=== PATIENT | female | born 1980 | race Caucasian/White ===

== ENCOUNTER 2017-12-13 23:06 | Emergency (ER) | payer MEDICAID ==
[~2017-12-13] VITALS: Ht 175.3 cm; Wt 65.8 kg
[2017-12-13] MEDS ORDERED: LORazepam 2 mg/ml vial IV ONE (23:45)
[2017-12-14] MEDS ORDERED: LORazepam 1 MG tablet PO ONE (00:05)
[2017-12-14 00:38] LABS: URINE HCG NEGATIVE (NEG)
[2017-12-14 00:40] LABS: HEMATOCRIT 40.1 % (35.0-45.0); HEMOGLOBIN 13.4 g/dl (12.0-16.0); MEAN CORPUSCULAR HEMOGLOBIN 30.8 PG (27.0-31.0); MEAN CORPUSCULAR HGB CONC 33.3 % (33.0-36.5); MEAN CORPUSCULAR VOLUME 92.5 FL (78-98); MEAN PLATELET VOLUME 8.3 FL (7.4-10.4); PLATELET COUNT 233 X10'3 (140-440); RED BLOOD COUNT 4.34 X10'6 (4.20-5.60); RED CELL DISTRIBUTION WIDTH 17.9 % (11.5-14.5); WHITE BLOOD COUNT 8.7 X10'3 (4.5-11.0)
[2017-12-14 00:48] LABS: URINE AMPHETAMINE SCREEN NEGATIVE (Neg); URINE BARBITUATE SCREEN NEGATIVE (Neg); URINE BENZODIAZEPINES SCREEN NEGATIVE (Neg); URINE CANNABINOID SCREEN NEGATIVE (Neg); URINE COCAINE SCREEN NEGATIVE (Neg); URINE METHADONE SCREEN NEGATIVE (Neg); URINE OPIATE SCREEN NEGATIVE (Neg); URINE PHENCYCLIDINE SCREEN NEGATIVE (Neg)
[2017-12-14 00:59] LABS: CLARITY,URINE CLEAR (Clear); COLOR,URINE YELLOW (Yellow); GLUCOSE, URINE NEGATIVE (Neg); KETONES,URINE NEGATIVE (Neg); LEUKOCYTE ESTERASE ,URINE NEGATIVE (Neg); NITRITES, URINE NEGATIVE (Neg); OCCULT BLOOD,URINE NEGATIVE (Neg); PROTEIN,URINE NEGATIVE (Neg); UROBILINOGEN,URINE 0.2 E.U/dL (0.2-1.0)
[2017-12-14 00:59] LABS: ALANINE AMINOTRANSFERASE 67 U/L (12-78); ALBUMIN 3.8 G/DL (3.4-5.0); ALBUMIN/GLOBULIN RATIO 1.1 (1.1-1.5); ALKALINE PHOSPHATASE 64 IU/L (46-116); ANION GAP 12 (8-16); ASPARTATE AMINO TRANSFERASE 60 U/L (10-37); BILIRUBIN,TOTAL 0.3 MG/DL (0.1-1.0); BLOOD UREA NITROGEN 4 MG/DL (7-18); BUN/CREATININE RATIO 6.5 (6.6-38.0); CALCIUM 8.8 MG/DL (8.5-10.1); CHLORIDE 106 MMOL/L (99-107); CREATININE 0.62 MG/DL (0.40-0.90); GLUCOSE 98 MG/DL (70-104); SODIUM 144 MMOL/L (135-145); TOTAL PROTEIN 7.3 G/DL (6.4-8.2); eGFR > 90 ML/MIN
[2017-12-14 01:00] LABS: UA COLLECTION TYPE CLN CATCH MIDSTREAM
[2017-12-14 01:01] LABS: ETHANOL 0.338 GM/DL (0.0-0.010)
[2017-12-14] MEDS ORDERED: OLANZapine 2.5MG tablet PO PRN (02:50)
[2017-12-14 04:16] LABS: ANISOCYTOSIS 2+; PLATELET ESTIMATE NORMAL; TARGET CELLS FEW; TOTAL CELLS COUNTED 100
[2017-12-14 16:02] VITALS: BP 119/94
== END 2017-12-14 16:31 | disposition home or self-care (01) ==
LOC: ER 23:07
DX: R45.851 Suicidal ideations (principal); F10.920 Alcohol use, unspecified with intoxication, uncomplicated; E05.90 Thyrotoxicosis, unspecified without thyrotoxic crisis or storm; Y90.9 Presence of alcohol in blood, level not specified
CPT/HCPCS: 36415; 70450; 70486; 80053; 80305; 80320; 81003; 81025; 84443; 85025; 99285

== ENCOUNTER 2024-07-15 12:37 | Emergency (ER) | payer MEDICAID ==
[~2024-07-15] VITALS: Ht 175.3 cm; Wt 66.5 kg
[2024-07-15 12:52] VITALS: TEMP 98.5
[2024-07-15] MEDS ORDERED: CHLO25CA10 PO (13:52)
[2024-07-15] MEDS ORDERED: ONDA-245 PO (13:52)
[2024-07-15] MEDS ORDERED: GABA-530 PO (13:52)
[2024-07-15 14:08] VITALS: BP 110/67; PULSE 93; RESP 15; O2SAT 98
== END 2024-07-15 14:10 | disposition home or self-care (01) ==
LOC: ER 12:38
DX: F10.90 Alcohol use, unspecified, uncomplicated (principal); Z00.00 Encounter for general adult medical examination without abnormal findings; Y90.9 Presence of alcohol in blood, level not specified
CPT/HCPCS: 99284

== ENCOUNTER 2024-12-03 08:36 | Inpatient (IN) | payer MEDICAID ==
[~2024-12-03] VITALS: Ht 175.3 cm; Wt 71.8 kg
[~2024-12-03 08:36] MED LIST: CHLO25CA10 PO; GABA-530 PO; ONDA-245 PO
[2024-12-03 10:08] LABS: BASOPHILS # (AUTO) 0.1 X10'3 (0-0.2); BASOPHILS % (AUTO) 0.7 % (0-1); EOSINOPHILS % (AUTO) 0.3 % (0-6); HEMOGLOBIN 14.5 g/dl (12.0-16.0); LYMPHOCYTES % (AUTO) 17.1 % (21-51); MEAN CORPUSCULAR HEMOGLOBIN 28.1 PG (27.0-31.0); MEAN CORPUSCULAR HGB CONC 33.1 g/dL (33.0-36.5); MEAN CORPUSCULAR VOLUME 85.1 FL (78-98); MEAN PLATELET VOLUME 7.7 FL (7.4-10.4); MONOCYTES # (AUTO) 0.6 X10'3 (0-0.9); MONOCYTES % (AUTO) 4.9 % (2-12); PLATELET COUNT 445 X10'3 (140-440); RED BLOOD COUNT 5.17 X10'6 (4.20-5.60); RED CELL DISTRIBUTION WIDTH 15.9 % (11.5-14.5); WHITE BLOOD COUNT 11.7 X10'3 (4.5-11.0)
[2024-12-03 10:13] LABS: ALANINE AMINOTRANSFERASE 19 U/L (12-78); ALBUMIN 3.7 G/DL (3.4-5.0); ALBUMIN/GLOBULIN RATIO 0.9 (1.1-1.5); ALKALINE PHOSPHATASE 85 IU/L (46-116); ANION GAP 11 (8-16); ASPARTATE AMINO TRANSFERASE 18 U/L (10-37); BILIRUBIN,TOTAL 0.4 MG/DL (0.1-1.0); BLOOD UREA NITROGEN 8 MG/DL (7-18); CALCIUM 8.6 MG/DL (8.5-10.1); CHLORIDE 104 MMOL/L (99-107); CREATININE 0.73 MG/DL (0.40-0.90); GLUCOSE 126 MG/DL (70-104); LIPASE 29 U/L (16-77); SODIUM 141 MMOL/L (135-145); TOTAL PROTEIN 7.8 G/DL (6.4-8.2); eCRCL 102 ML/MIN; eGFR 86 ML/MIN
--- NOTE | 2024-12-03 12:58 | Physician Documentation ---
History of Present Illness ~ Chief Complaint: ETOH Withdrawl Stated Complaint: DETOX ANXIETY Time Seen by MD: 13:07 OK to notify your PCP?: Yes Primary Medical Doctor: None Source: patient Mode of Arrival: POV Exam Limitations: no limitations HPI 44 y/o female with alcoholism here with nausea and vomiting all night. States "I am just so sick." Patient states last drink of ETOH was this morning "just a sip." Patient states "I am really thirsty and hungry, I have not eaten in days." Patient reports back pain which started shortly after she got here. Patient states she has been trying to decrease her etoh intake over past week. Denies hallucinations and delirium. Denies chest pain, abdominal pain, blood in stool. Patient reports she has been drinking alcohol excessively due to wanting to "kill" herself. Family also called while she was in ER reporting concern about her reporting suicidal ideations. Medication Reconciliation Allergies: Coded Allergies: No Known Allergies (Unverified , 12/13/17) Scheduled Gabapentin (Gabapentin), 1 CAP PO Q8H Scheduled PRN Chlordiazepoxide Hcl (Librium), 1 CAP PO Q6H PRN for alcohol w/d symptoms Ondansetron 8mg ODT (Ondansetron Odt), 1 TAB PO TID PRN for nausea/vomiting Past Medical History Past Medical History: Hyperthyroidism Past Surgical History: no surgical history Lives In: Home Review of Systems All Other Systems at this time: Reviewed and Negative Physical Exam Vital Signs: Temperature: 97.9, Source: Temporal, Heart Rate: 119, Respiratory Rate: 18, BP: 129/87, Pulse Oximetry: 96, Weight: 71.750 Oxygen Flow Rate: 0 Physical Exam GENERAL: Alert, Appears nauseated, poor eye contact. Vomiting in triage. HEENT: NCAT, EOMI, PERRL, dry oral mucosa. NECK: Supple, trachea midline. CARDIAC: Regular rate and rhythm, no murmurs, rubs, or gallops. Equal distal pulses. No lower extremity edema, cap refill less than 2 seconds. RESPIRATORY: Equal breath sounds, clear to auscultation bilaterally, no respiratory distress. GASTROINTESTINAL: Non distended, soft, nontender, No guarding or rebound. MUSCULOSKELETAL: Normal range of motion, nontender, no swelling. Normal gait. NEUROLOGICAL: Awake, alert, and oriented x 3. SKIN: Warm/dry, no pallor, no rash. PSYCH: Alert and appropriate. Poor eye contact. Progress Results/Orders Results/Orders Orders - LISA DE SOUZA Med Rec (12/03/24 13:00) 1799.11 (12/03/24 13:00) Close Observation Level (12/03/24 13:00) Covid19 Binax Poc Result Entry (12/03/24 13:00) Substance Use Navigator (12/03/24 13:00) Regular Diet (12/03/24 Dinner) Page Hospitalist (12/03/24 15:06) Completed Orders - LISA DE SOUZA Normal Saline 1000ml (Sodium Chloride 10 (12/03/24 13:00) Lorazepam Inj (Ativan Inj) (12/03/24 13:00) Ondansetron Inj. (Zofran 4mg/2ml Vial) (12/03/24 13:00) Hcg, Ur Ql (12/03/24 13:00) Drug Screen, Urine (12/03/24 13:00) Stat Ekg (12/03/24 15:06) Medications Received in ER Medications (Trade) Dose Ordered Sig/Katherine Route PRN Reason Start Time Stop Time Status Last Admin Dose Admin (sodium chloride 1000ml IV soln) 2,000 ml ONCE ONCE IVB 12/03/24 13:00 12/03/24 13:01 DC 12/03/24 13:20 2,000 ML (Ativan inj) 2 mg ONCE ONCE IV 12/03/24 13:00 12/03/24 13:01 DC 12/03/24 13:20 2 MG (Zofran 4mg/2ml vial) 4 mg ONCE ONCE IV 12/03/24 13:00 12/03/24 13:01 DC 12/03/24 13:20 4 MG Vital Signs 12/03/24 12/03/24 12/03/24 12/03/24 08:50 12:53 13:45 13:45 Temp 97.9 97.9 Pulse 119 122 92 Resp 18 18 16 20 B/P (MAP) 129/87 137/77 (97) 123/68 (86) Pulse Ox 96 99 98 O2 Flow Rate 0 0 0 Laboratory Tests Test 12/03/24 09:47 12/03/24 12:57 12/03/24 14:10 White Blood Count 11.7 H Red Blood Count 5.17 Hemoglobin 14.5 Hematocrit 44.0 Mean Corpuscular Volume 85.1 Mean Corpuscular Hemoglobin 28.1 Mean Corpuscular Hemoglobin Concent 33.1 Red Cell Distribution Width 15.9 H Platelet Count 445 H Mean Platelet Volume 7.7 Neutrophils (%) (Auto) 77.0 H Lymphocytes (%) (Auto) 17.1 L Monocytes (%) (Auto) 4.9 Eosinophils (%) (Auto) 0.3 Basophils (%) (Auto) 0.7 Neutrophils # (Auto) 9.0 H Lymphocytes # (Auto) 2.0 Monocytes # (Auto) 0.6 Eosinophils # (Auto) 0.0 Basophils # (Auto) 0.1 CBC Comment Sodium Level 141 Potassium Level 4.0 Chloride Level 104 Carbon Dioxide Level 26.0 Anion Gap 11 Blood Urea Nitrogen 8 Creatinine 0.73 Estimated GFR/1.73 m2 86 BUN/Creatinine Ratio 11.0 Glucose Level 126 H Calcium Level 8.6 Total Bilirubin 0.4 Aspartate Amino Transf (AST/SGOT) 18 Alanine Aminotransferase (ALT/SGPT) 19 Alkaline Phosphatase 85 Total Protein 7.8 Albumin 3.7 Globulin 4.1 Albumin/Globulin Ratio 0.9 L Lipase 29 Thyroid Stimulating Hormone (TSH) 0.01 L Free Thyroxine 0.98 Chemistry Comments Ethyl Alcohol Level 191 H Urine Specimen Description Cln catch midstream Urine Color Red Urine Clarity Cloudy Urine pH 6.5 Urine Specific [place] 1.025 Urine Protein 100 H Urine Glucose (UA) Negative Urine Ketones Negative Urine Occult Blood Large H Urine Nitrite Negative Urine Bilirubin Negative Urine Urobilinogen 1.0 Urine Leukocyte Esterase Trace H Urine RBC Tntc Urine WBC 5-10 H Urine Squamous Epithelial Cells Few Urine Bacteria 1+ Urine Mucus None seen Urine Culture Indicated Indicated Volume Urine Centrifuged 4 ml Urine HCG, Qualitative Negative Urine Comment Low volume Urine Opiates Screen Negative Urine Methadone Screen Negative Urine Fentanyl Screen Negative Urine Barbiturates Screen Negative Urine Phencyclidine Screen Negative Urine Amphetamines Screen Negative Urine Benzodiazepines Screen Negative Urine Cocaine Screen Negative Urine Cannabinoids Screen Negative Drug Screen Comment SARS-CoV-2 Antigen (Rapid) Negative Microbiology Date/Time Source Procedure Growth Status 12/03/24 13:46 Urine Clean Catch Midstream Urine Culture - Preliminary Culture received. Resulted Medical Decision Making Differential Dx:Considerations: Include: Alcohol withdrawl synd., Delerium tremens, Hallucinosis, Seizures, Anticholinergic poisoning, CVA, Dehydration, Depression, Drug induced psychosis, Electolyte imbalance, Encephalitis, Encephalopathy, Hepatitis, Hyperthermia, Intoxication-alcohol, Intoxication- other drug, Medical noncompliance, Personality disorder, Schizophrenia, Seizure disorder, Substance abuse disorder, Seizure disorder, Thiamine deficiency, Thyrotoxicosis Departure Time of Disposition: 15:03 Disposition: 30 STILL A PATIENT Impression: Primary Impression: Alcoholic intoxication Qualified Codes: F10.920 - Alcohol use, unspecified with intoxication, uncomplicated Additional Impressions: Suicidal ideation Nausea & vomiting Qualified Codes: R11.2 - Nausea with vomiting, unspecified UTI (urinary tract infection) Qualified Codes: N30.01 - Acute cystitis with hematuria Hyperthyroidism Condition: Fair Discharge Instructions: Alcohol Intoxication, Suicidal Feelings: How to Help Yourself Additional Instructions: Transfer orders for [facility]: At this time there is no evidence of an emergent medical condition that would preclude (admission/transfer) to a psychiatric unit via [facility] protocol for further psychiatric, as well as medical evaluation and treatment. At this time I have no reason to believe that transfer via [facility] protocol would have serious medical compromise in the patient's health. Referrals: NO PRIMARY CARE PROVIDER (PCP) Education Educated: Patient Educated regarding: diagnosis, treatment, need for follow up Additional Comment Medical Screen Exam 44 y/o female with alcoholism here with nausea and vomiting all night. States "I am just so sick." Patient states last drink of ETOH was this morning "just a sip." Patient states "I am really thirsty and hungry, I have not eaten in days." Patient reports back pain which started shortly after she got here. Patient states she has been trying to decrease her etoh intake over past week. Denies hallucinations and delirium. Denies chest pain, abdominal pain, blood in stool. PEx: Appears nauseated, poor eye contact. Not diaphoretic. Vomiting in triage. a/p: 1. Nausea and vomiting 2. Alcoholism 3. Back pain, acute Labs normal-waiting on urine. IV fluids ordered along with ativan and zofran. Patient's vitals are stable, labs show no emergent findings. The note accurately reflects work and decisions made by me.Lisa ARIAS 12/03/24 12:57 Signature Scribe Signature: x Attestation: x LISA DE SOUZA December 03, 2024 12:58
[2024-12-03 13:19] LABS: URINE HCG NEGATIVE (NEG)
[2024-12-03] MEDS: LORazepam 2 mg/ml vial IV ONE (13:20)
[2024-12-03] MEDS: normal saline 1000ML IV soln IVB ONE (13:20)
[2024-12-03] MEDS: ondansetron/PF 4mg/2ml inj IV ONE (13:20)
[2024-12-03 13:30] LABS: BILIRUBIN,URINE NEGATIVE (Neg); CLARITY,URINE CLOUDY (Clear); COLOR,URINE RED (Yellow); GLUCOSE, URINE NEGATIVE (Neg); KETONES,URINE NEGATIVE (Neg); LEUKOCYTE ESTERASE ,URINE TRACE (Neg); NITRITES, URINE NEGATIVE (Neg); OCCULT BLOOD,URINE LARGE (Neg); PH,URINE 6.5 (4.8-8.0); PROTEIN,URINE 100 mg/dl (Neg)
[2024-12-03 13:32] LABS: ETHANOL 191 MG/DL (<10); THYROID STIMULATING HORMONE 0.01 ulU/ml (0.34-4.50)
[2024-12-03 13:33] LABS: URINE AMPHETAMINE SCREEN NEGATIVE (Neg); URINE BARBITUATE SCREEN NEGATIVE (Neg); URINE BENZODIAZEPINES SCREEN NEGATIVE (Neg); URINE CANNABINOID SCREEN NEGATIVE (Neg); URINE COCAINE SCREEN NEGATIVE (Neg); URINE METHADONE SCREEN NEGATIVE (Neg); URINE OPIATE SCREEN NEGATIVE (Neg); URINE PHENCYCLIDINE SCREEN NEGATIVE (Neg)
[2024-12-03 13:46] LABS: BACTERIA,URINE 1+ /HPF (Neg); MUCUS STRANDS NONE SEEN /LPF (Neg); RBC,URINE TNTC /HPF (0-2); SQUAMOUS EPITHELIAL CELL,UR FEW /LPF (FEW); UA COLLECTION TYPE CLN CATCH MIDSTREAM
--- NOTE | 2024-12-03 15:13 | ELECTROCARDIOGRAPH REPORT ---
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 Ray Cortes Measurements Intervals [place] Rate: 94 P: 45 [place]: 138 QRS: 37 QRSD: 84 T: 68 QT: 365 QTc: 457 Interpretive Statements Sinus rhythm Probable anteroseptal infarct, old Baseline wander in lead(s) II,III,aVR,aVF Electronically Signed On 12-04-2024 11:01:[address] Ray Cortes Please click the below link to view image of tracing.
[2024-12-03 15:39] LABS: FREE T4 (FREE THYROXINE) 0.98 NG/DL (0.73-1.40)
[2024-12-03] MEDS ORDERED: potassium Cl 20 mEq SR tablet PO PRN (15:55)
[2024-12-03] MEDS ORDERED: acetaminophen 325mg tablet PO PRN (15:55)
[2024-12-03] MEDS ORDERED: magnesium sulf-water 2g/50mL 50 ML IV PRN (15:55)
[2024-12-03] MEDS ORDERED: haloperidol 5mg tablet PO PRN (15:55)
[2024-12-03] MEDS ORDERED: haloperidol lactate 5mg/ml inj IM PRN (15:55)
[2024-12-03] MEDS ORDERED: magnesium sulf-water 4G/100mL 100 ML IV PRN (15:55)
[2024-12-03] MEDS ORDERED: potassium Cl 40MEQ/1/2NS 520ml 520 ML IV PRN (15:55)
[2024-12-03] MEDS ORDERED: magnesium hydroxide 30ml (MOM) UD suspension PO PRN (15:55)
[2024-12-03] MEDS ORDERED: mag hydrox/Alum hydrox/simeth 30ml oral suspension PO PRN (15:55)
[2024-12-03] MEDS ORDERED: ondansetron/PF 4mg/2ml inj IV PRN (15:55)
[2024-12-03] MEDS: CefTRIAXone/D5W-Rocephin 1gm 50 ML IV ONE (16:51)
[2024-12-03] MEDS: diazepam inj 5 MG/ML inj. IV PRN (17:13)
[2024-12-03] MEDS: normal saline 1000ml 1,000 ML IV SCH (18:15)
[2024-12-03] MEDS ORDERED: METH-1026 PO (18:49)
[2024-12-03] MEDS: K and/or MAG REPLACEMENT MC SCH (20:00)
[2024-12-03] MEDS: docusate sod 100mg capsule PO SCH (20:00)
[2024-12-03] MEDS: thiamine 100mg tablet PO SCH (20:44)
[2024-12-03] MEDS: enoxaparin 40mg/0.4ml syringe SQ SCH (20:45)
[2024-12-03 21:10] VITALS: BP 131/73; PULSE 90; RESP 16; TEMP 98.8; O2SAT 98
--- NOTE | 2024-12-03 21:46 | HISTORY AND PHYSICAL ---
History & Physical Providers to CC ~ History of Present Illness Reason for Admit\Complaint: Alcohol withdrawal possible pyelonephritis History of Present Illness This is a 44-year-old female who presents to ED with early alcohol withdrawal she has noticed some nausea and vomiting for the past 24 hours. The patient's mother came from [facility] to visit three days ago had some concerns about her daughter to who had started drinking again heavily the patient is hopeless and her seven children are distant and per the patient's mother are cold to her per the ED report that the patient was drinking excessively and wanted to kill herself however there the patient's mother does not fully endorse this nor does the patient for now and have the patient on a 1799.11 hold and a sitter is ordered however I will reassess and may lift to hold tomorrow since the patient is not appear to have suicidal ideation or her drinking heavily alcohol was not suicidal attempt either. Patient does have some low back pain and her urinalysis is consistent with a UTI and the patient is on IV Rocephin and treat for possible pyelonephritis Allergies: Coded Allergies: No Known Allergies (Unverified , 12/13/17) Home Medications Home Medications Active Reported methimazole tablet (Methimazole) 5 Mg Tablet 1 Tab PO BID 30 Days Past Medical History Past Medical History PTSD, anxiety, alcohol use disorder, hypothyroidism Past Surgical History Surgical History Comment No prior surgeries Family History Family History: FH: depression MOTHER Maternal grandmother FH: esophageal cancer Maternal grandfather FH: suicide Maternal great grand father Past Social History Social History Comment Heavy vaping of nicotine, drinks at least four 100 prof 200 mL hard alcohol drinks, denies any illicit drug use. Full code status ROS ROS Except for positives in the HPI the rest of the 14 point review systems is negative Exam Vitals: Vital Signs Date Time Temp Pulse Resp B/P (MAP) Pulse Ox O2 Delivery O2 Flow Rate FiO2 12/03/24 19:34 102 17 135/88 (104) 98 0 12/03/24 13:45 97.9 General: Gen. No acute distress alert and oriented 4, flat affect Lungs clear to ascultation bilaterally, no wheezes rales or rhonchi appreciated Heart normal sinus rhythm no murmurs rubs or clicks noted Abdomen soft nontender bowel sounds are normoactive Lower extremities no clubbing cyanosis, nor edema appreciated bilaterally Neuro no tremors appreciated Diagnostic Data Last Recorded Lab Results: 12/03/2447 12/03/24946 Advance Care Planning Advanced Care plannin - 30 Minutes Problems: (1) Alcohol use disorder Status: Acute Additional Plan # early alcohol withdrawal- the patient did drink a small amount of alcohol this morning On alcohol withdrawal protocol including IV diazepam and p.o. lorazepam Seizure precautions are ordered P.o. thiamine and p.o. folic acid and multivitamin Discussed discharging with either naltrexone or acamposite # hopelessness- eval for suicidal ideation It does not appear that the patient actually has not any suicidal ideation after speaking both with the patient and the patient's mother I have ordered a sitter and a 1799.11 hold Reassessed in the morning likely will lift the hold # hypothyroidism- Suppressed TSH to 0.01 however normal free T4 Consider ordering a thyroiditis panel # tobacco use disorder- 21 mg nicotine patch was ordered today I will discuss with the patient likely tomorrow about smoking cessation however the patient has a rather flat affect and I did not want to worsen her depression at this juncture Full code by default Date of Service: December 03, 2024 Billing Provider: CHING ESPARZA DO Common Visit Codes: 50218-[id number] INP/OBS CARE (HIGH) Secondary Visit Codes: 64461-[id number] CARE PLAN 30 MINUTES CHING ESPARZA DO December 03, 2024 21:46
[2024-12-03 22:00] VITALS: RESP 16; O2SAT 98
[2024-12-04] MEDS: LORazepam 1 MG tablet PO PRN (05:53)
[2024-12-04 06:00] VITALS: BP_SYST 134; BP_SYST 138; BP_DIAS 66; BP_DIAS 79; PULSE 104; PULSE 88; RESP 16; TEMP 98; O2SAT 100; O2SAT 96
[2024-12-04 06:46] LABS: BASOPHILS % (AUTO) 0.6 % (0-1); EOSINOPHILS # (AUTO) 0.2 X10'3 (0-0.9); EOSINOPHILS % (AUTO) 3.6 % (0-6); HEMATOCRIT 37.8 % (35.0-45.0); HEMOGLOBIN 12.6 g/dl (12.0-16.0); LYMPHOCYTES # (AUTO) 2.2 X10'3 (1.1-4.8); LYMPHOCYTES % (AUTO) 31.7 % (21-51); MEAN CORPUSCULAR HEMOGLOBIN 28.6 PG (27.0-31.0); MEAN CORPUSCULAR HGB CONC 33.3 g/dL (33.0-36.5); MEAN CORPUSCULAR VOLUME 85.7 FL (78-98); MEAN PLATELET VOLUME 8.3 FL (7.4-10.4); MONOCYTES # (AUTO) 0.7 X10'3 (0-0.9); MONOCYTES % (AUTO) 10.6 % (2-12); NEUTROPHILS # (AUTO) 3.7 X10'3 (1.8-7.7); NEUTROPHILS % (AUTO) 53.5 % (42-75); PLATELET COUNT 300 X10'3 (140-440); WHITE BLOOD COUNT 6.9 X10'3 (4.5-11.0)
[2024-12-04 06:53] LABS: INR 1.1 INR; PROTHROMBIN TIME 10.8 SECONDS (9.0-12.0)
[2024-12-04 07:01] LABS: ALANINE AMINOTRANSFERASE 14 U/L (12-78); ALBUMIN 2.8 G/DL (3.4-5.0); ALBUMIN/GLOBULIN RATIO 0.9 (1.1-1.5); ALKALINE PHOSPHATASE 71 IU/L (46-116); ANION GAP 8 (8-16); ASPARTATE AMINO TRANSFERASE 18 U/L (10-37); BILIRUBIN,TOTAL 1.3 MG/DL (0.1-1.0); BLOOD UREA NITROGEN 5 MG/DL (7-18); BUN/CREATININE RATIO 7.8 (10.0-20.0); CALCIUM 7.9 MG/DL (8.5-10.1); CHLORIDE 107 MMOL/L (99-107); CREATININE 0.64 MG/DL (0.40-0.90); GLUCOSE 100 MG/DL (70-104); LIPASE 34 U/L (16-77); MAGNESIUM 1.4 MG/DL (1.5-2.4); PHOSPHORUS 2.5 MG/DL (2.3-4.5); SODIUM 143 MMOL/L (135-145); TOTAL CARBON DIOXIDE 28.5 MMOL/L (24-32); TOTAL PROTEIN 5.9 G/DL (6.4-8.2); eCRCL 116 ML/MIN; eGFR > 90 ML/MIN
[2024-12-04 08:20] VITALS: RESP 16; O2SAT 100
[2024-12-04 10:00] VITALS: BP 121/59; PULSE 71; RESP 15; TEMP 97.6; O2SAT 96
[2024-12-04] MEDS: CefTRIAXone/D5W-Rocephin 1gm 50 ML IV SCH (10:52)
[2024-12-04] MEDS: multivitamins, therapeutics tablet PO SCH (10:54)
[2024-12-04] MEDS: potassium Cl 20 mEq SR tablet PO PRN (10:57)
[2024-12-04] MEDS: nicotine 21mg patch - 24 hr TD SCH (12:51)
[2024-12-04] MEDS ORDERED: ACAM333T8 PO (15:29)
[2024-12-04] MEDS ORDERED: CHLO25CA10 PO (15:29)
[2024-12-04] MEDS ORDERED: ONDA-243 PO (15:34)
[2024-12-04] MEDS ORDERED: IBUP-1985 PO (15:40)
[2024-12-04] MEDS ORDERED: POTA-207 PO (17:10)
--- NOTE | 2024-12-04 19:39 | DISCHARGE SUMMARY ---
Discharge Summary Providers to CC ~ Discharge Summary Admission Diagnosis: ETOH withdrawl/ uti-possible pyelonephritis Hospital Course DATE OF ADMISSION: 02/02/2025 DATE OF DISCHARGE: 02/03/2025 Discharge Diagnosis\Comment: Alcohol use disorder with alcohol withdrawal, depression however suicidal ideation ruled out, back pain with pyuria UTI ruled out, tobacco use disorder, hyperthyroidism, hypokalemia Operations\Procedures: None Consultants: None Complications: None Condition on DC: Stable New Medications: Acamprosate Calcium (Acamprosate Calcium) 333 Mg Tablet.dr 2 TAB PO Q8H for 30 Days, #180 TAB 0 Refills Chlordiazepoxide Hcl (Chlordiazepoxide Hcl) 25 Mg Capsule 1 CAP PO Q8H PRN for alcohol withdrawal, #10 CAP 0 Refills Ibuprofen (Ibuprofen) 600 Mg Tablet 1 TAB PO Q8H PRN for pain, #30 TAB 0 Refills with food ONDANSETRON ODT 4mg tablet (Ondansetron Odt) 4 Mg Tab.rapdis 4 MG PO Q6H PRN for nausea/vomiting, #24 TAB 1 Refill Potassium Chloride* (K-Dur*) 20 Meq Tab.prt.sr 1 TAB PO DAILY, #30 TAB Check a BMP in 2 weeks Continued Medications: Methimazole (methimazole tablet) 5 Mg Tablet 1 TAB PO BID for 30 Days, #30 TAB 0 Refills Discharge Summary: I admitted the patient with the following HPI:This is a 44-year-old female who presents to ED with early alcohol withdrawal she has noticed some nausea and vomiting for the past 24 hours. The patient's mother came from the [facility] to visit three days ago had some concerns about her daughter to who had started drinking again heavily the patient is hopeless and her seven children are distant and per the patient's mother are cold to her per the ED report that the patient was drinking excessively and wanted to kill herself however there the patient's mother does not fully endorse this nor does the patient for now and have the patient on a 1799.11 hold and a sitter is ordered however I will reassess and may lift to hold tomorrow since the patient is not appear to have suicidal ideation or her drinking heavily alcohol was not suicidal attempt either. Patient does have some low back pain and her urinalysis is consistent with a UTI and the patient is on IV Rocephin and treat for possible pyelonephritis. In speaking with the patient in the early afternoon of the it was clear that the patient was not suicidal I assessed she likely was not suicidal at the time of admission however since the patient has been intoxicated earlier that morning and the documentation of ED provider I made the safe call if making the patient a 1799.11 and ordered a sitter. I did prescribe acamprosate as well as Librium 25 mg one tablet every 8 hours p.r.n. alcohol withdrawal a total of 10 tablets The patient exhibited minimal tremors she had received 5 mg of IV diazepam in the ED and only received 2 mg tablet of lorazepam in the brace maker the day of discharge The patient was initially diagnosed with a UTI however the urine culture grew out normal sri thus a contaminant specimen and the patient has a normal white blood cell count and denied any dysuria she did have some low-back pain however the patient has a informs me that she does have scoliosis and was vomiting and likely this flared up her low-back pain which occasionally does occur especially when vomiting. The patient also requested ibuprofen for low-back pain I did write for 600 mg one tablet every 8 hours p.r.n. pain a 30 tablets script was given I did recommend the patient that she takes the medication with food and a be very judicious in the using this medication as this medication can cause an ulcer. The patient also requested nausea medicine and was prescribed ondansetron ODT. The patient has a normal potassium on admission 4.0 however she has been vomiting and a potassium of 3.0 on day discharge- the patient received potassium supplementation and was described a prescription for KCl 20 mEq daily 30 tablets with recommendations to recheck a basic metabolic panel one week. Gen. No acute distress alert and oriented 4 Lungs clear to ascultation bilaterally, no wheezes rales or rhonchi appreciated Heart normal sinus rhythm no murmurs rubs or clicks noted Abdomen soft nontender bowel sounds are normoactive Lower extremities no clubbing cyanosis, nor edema appreciated bilaterally The patient felt ready to be discharged and was medically cleared to be discharged on 12/04/2024- I did discuss with the patient the importance of going to daily AA meetings and obtaining a sponsor and call in his sponsor when she has the urge to drink alcohol. The patient was seen and evaluated on day of discharge. Time spent on discharge 45 minutes *Problems/Diagnosis: (1) Alcohol use disorder Status: Acute Total Time Spent on D/C: > 30 Minutes Date of Service: December 04, 2024 Billing Provider: CHING ESPARZA DO Common Visit Codes: 79792-FYD/OBS DISCH DAY >30min CHING ESPARZA DO December 04, 2024 19:38
[2024-12-04] MEDS ORDERED: methimazole 5mg tablet PO SCH (20:00)
[2024-12-05] MEDS ORDERED: LORazepam 2 mg/ml vial IV PRN (15:55)
[2024-12-05] MEDS ORDERED: LORazepam 1 MG tablet PO PRN (15:55)
[2024-12-08] MEDS ORDERED: folic acid 1mg tablet PO SCH (08:00)
== END 2024-12-04 17:40 | disposition home or self-care (01) | DRG 425 ==
LOC: ER 08:37 → ED HOLD 16:07 → ORTHO 4S 21:19
PROVIDERS: ADMIT Family Medicine; ATTEND Family Medicine
DX: E87.6 Hypokalemia (principal); E03.9 Hypothyroidism, unspecified; Z20.822 Contact with and (suspected) exposure to COVID-19; E05.90 Thyrotoxicosis, unspecified without thyrotoxic crisis or storm; F10.920 Alcohol use, unspecified with intoxication, uncomplicated; F10.930 Alcohol use, unspecified with withdrawal, uncomplicated; F17.200 Nicotine dependence, unspecified, uncomplicated; F41.9 Anxiety disorder, unspecified; M54.50 Low back pain, unspecified; F43.10 Post-traumatic stress disorder, unspecified; M41.9 Scoliosis, unspecified; Y90.6 Blood alcohol level of 120-199 mg/100 ml; Z80.0 Family history of malignant neoplasm of digestive organs; Z81.8 Family history of other mental and behavioral disorders
CPT/HCPCS: 36415; 80053; 80305; 80320; 81001; 81025; 83690; 83735; 84100; 84439; 84443; 85025; 85610; 87081; 87088; 87811; 93005; G0378; J0696; J1650; J2060; J2405; J3360; J7030